=== PATIENT | male | born 1975 | race Two or more races ===

== ENCOUNTER 2023-10-08 11:00 | Emergency (ER) | payer OTHER ==
[~2023-10-08] VITALS: Ht 190.5 cm; Wt 101.6 kg
[2023-10-08 11:08] VITALS: BP 141/81; PULSE 90; RESP 18; TEMP 97.5; O2SAT 98
[2023-10-08] MEDS ORDERED: FLUORESCEIN OPTH STRIP 1 MG ONE (11:46)
[2023-10-08] MEDS ORDERED: TETRACAINE HCL/PF 0.5% OPTH 4 ML BTL ONE (11:47)
[2023-10-08] MEDS: FLUORESCEIN OPTH STRIP 1 MG OP ONE (11:47)
[2023-10-08] MEDS: TETRACAINE HCL/PF 0.5% OPTH 4 ML BTL OP ONE (11:48)
[2023-10-08] MEDS ORDERED: IBUP-2213 PO (12:02)
[2023-10-08] MEDS ORDERED: OFLO5SOL27 RIGHT EYE (12:02)
== END 2023-10-08 12:11 | disposition home or self-care (01) ==
LOC: MED 11:00
DX: T15.01XA Foreign body in cornea, right eye, initial encounter (principal); E11.9 Type 2 diabetes mellitus without complications; E78.5 Hyperlipidemia, unspecified; Z79.899 Other long term (current) drug therapy; X58.XXXA Exposure to other specified factors, initial encounter; Y92.89 Other specified places as the place of occurrence of the external cause; Y93.89 Activity, other specified; Y99.8 Other external cause status
CPT/HCPCS: 65220; 99284

== ENCOUNTER 2023-10-13 14:50 | Emergency (ER) | payer OTHER ==
[~2023-10-13] VITALS: Ht 188 cm; Wt 98.9 kg
[~2023-10-13 14:50] MED LIST: IBUP-2213 PO; OFLO5SOL27 RIGHT EYE
[2023-10-13 14:59] VITALS: BP 134/84; PULSE 93; RESP 20; TEMP 97.8; O2SAT 99
== END 2023-10-13 20:40 | disposition left against medical advice (07) ==
LOC: MED 14:50
DX: R51.9 Headache, unspecified (principal); R20.0 Anesthesia of skin; Z53.21 Procedure and treatment not carried out due to patient leaving prior to being seen by health care provider
CPT/HCPCS: 99281